=== PATIENT | male | born 1965 | race Two or more races ===

== ENCOUNTER 2023-01-18 11:17 | Emergency (ER) | payer OTHER ==
[~2023-01-18] VITALS: Ht 188 cm; Wt 129.4 kg
[2023-01-18 12:09] VITALS: BP 139/73
[2023-01-18] MEDS ORDERED: IBUPROFEN 600 MG TAB PO ONE (13:15)
[2023-01-18] MEDS ORDERED: CYCL-839 PO (13:18)
[2023-01-18] MEDS ORDERED: IBUP600T28 PO (13:18)
== END 2023-01-18 13:32 | disposition home or self-care (01) ==
LOC: ER 11:17
DX: S43.401A Unspecified sprain of right shoulder joint, initial encounter (principal); X58.XXXA Exposure to other specified factors, initial encounter; Y93.89 Activity, other specified; Y92.89 Other specified places as the place of occurrence of the external cause; Y99.8 Other external cause status
CPT/HCPCS: 73030

== ENCOUNTER 2025-02-09 21:32 | Inpatient (IN) | payer OTHER ==
[~2025-02-09] VITALS: Ht 188 cm; Wt 123.6 kg
[~2025-02-09 21:32] MED LIST: CYCL-839 PO; IBUP1TAB5 PO
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
--- NOTE | 2025-02-09 22:03 | ECG ---
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
[2025-02-09 22:21] LABS: Basophils # (auto) 0.1 10 ^3/uL (0-0.2); Basophils % (auto) 0.7 % (0.0-2.0); Eosinophils # (auto) 0.1 10 ^3/uL (0-0.8); Hematocrit 36.5 % (41.0-53.0); Hemoglobin 12.6 g/dL (13.5-17.5); Lymphocytes # (auto) 0.9 10 ^3/uL (0.4-5.4); Lymphocytes % (auto) 12.2 % (10.0-50.0); Mean Corpuscular Hemoglobin 30.4 pg (28.0-32.0); Mean Corpuscular Hgb Conc. 34.5 g/dL (32.0-36.0); Mean Corpuscular Volume 88.1 fL (80.0-100.0); Monocytes # (auto) 0.8 10 ^3/uL (0-1.3); Monocytes % (auto) 10.1 % (0.0-12.0); Neutrophils # (auto) 5.8 10 ^3/uL (1.6-8.6); Nucleated Red Blood Cells % 0.1 %; Platelet Count (auto) 199 10^3/uL (140-450); Red Blood Cells 4.14 10^6/uL (4.5-5.90); Red Cell Distribution Width 14.2 % (11.8-14.3); White Blood Cell 7.6 10^3/uL (4.4-10.8)
--- NOTE | 2025-02-09 22:35 | DVH ---
CT HEAD WITHOUT CONTRAST INDICATION: Confusion, headache COMPARISON: None TECHNIQUE: CT of the head without intravenous contrast. RADIATION DOSE: CTDIvol: mGy, DLP: mGy*cm FINDINGS: There is no evidence of intracranial hemorrhage, infarct, extra-axial collection, mass effect, midli ne shift, herniation or hydrocephalus. The ventricles, sulci and cisterns are normal. The berger-white differentiation is normal. Visualized paranasal sinuses and mastoid air cells are clear. Soft tissues and osseous structures are unremarkable. IMPRESSION: No intracranial abnormality identified.
--- NOTE | 2025-02-09 22:37 | DVH ---
CHEST RADIOGRAPH Indication: dizziness chest pain Technique: Frontal and lateral view of the chest was obtained Comparison: None FINDINGS: Lines and Tubes: None Lungs: No pulmonary infiltrates or pulmonary edema. Evidence of small round 5 mm calcified granuloma at the right lung base. Pleura: No effusion. No pneumothorax. Cardiomediastinal contours: Unremarkable Bones: Unremarkable IMPRESSION: No evidence of acute disease.
[2025-02-09 22:38] LABS: Alanine Aminotransferase 26 U/L (7-40); Alkaline Phosphatase 64 U/L (46-116); Anion Gap 11 (5-15); Aspartate Aminotransferase 20 U/L (13-40); BUN/Creatinine Ratio 5.8 (10.0-20.0); Bilirubin, Total 0.5 mg/dL (0.2-1.0); Carbon Dioxide 21 mmol/L (20-31); Chloride 99 mmol/L (98-107); Potassium 4.2 mmol/L (3.5-5.1); Total Protein 7.1 g/dL (5.7-8.2)
[2025-02-09 22:45] LABS: Albumin 4.8 g/dL (3.2-4.8); Blood Urea Nitrogen 6 mg/dL (9-23); Glucose 181 mg/dL (74-106); Sodium 131 mmol/L (136-145)
[2025-02-09 23:15] LABS: Urine Bacteria None Seen /hpf (None Seen)
[2025-02-09] MEDS ORDERED: ONDANSETRON HCL 4 MG/2 ML VIAL IV PRN (23:30)
[2025-02-09] MEDS ORDERED: HYDROcodone-ACET 5/325MG TAB PO PRN (23:30)
[2025-02-09] MEDS ORDERED: ACETAMINOPHEN 325 MG TAB PO PRN (23:30)
[2025-02-09] MEDS ORDERED: DOCUSATE SOD 100 MG CAP PO PRN (23:30)
[2025-02-09 23:39] LABS: Urine Blood Negative /uL (Negative); Urine Clarity Clear (Clear); Urine Color Colorless (Yellow); Urine Protein, UAD Negative (Negative); Urine Specific Gravity 1.004 (1.001-1.035); Urine Squamous Epithelial Cell None Seen /hpf (<5); Urine Urobilinogen Normal (Negative)
[2025-02-09 23:43] LABS: Amphetamine Screen, Urine Neg (NEGATIVE); Barbiturate Scree,Urine Neg (NEGATIVE); Benzodiazephine Screen, Urine Neg (NEGATIVE); Cannabinoid Screen, Urine Neg (NEGATIVE); Cocaine Screen, Urine Neg (NEGATIVE); Opiate Scree,Urine Neg (NEGATIVE); Phencyclidine Screen, Urine Neg (NEGATIVE)
[2025-02-09 23:44] LABS: Urine WBC < 1 /HPF (0-3)
[2025-02-10] VITALS (12 sets, daily range): BP systolic 110–154; BP diastolic 60–91; PULSE 64–87; RESP 11–20; TEMP 97.9–98.8; O2SAT 96–98
[2025-02-10] MEDS ORDERED: ONDANSETRON HCL 4 MG/2 ML VIAL IV PRN
[2025-02-10] MEDS ORDERED: MORPHINE SULFATE INJ 2 MG/ml SYRG IV PRN
[2025-02-10] MEDS ORDERED: ACETAMINOPHEN 325 MG TAB PO PRN
[2025-02-10] MEDS ORDERED: NITROGLYCERIN 0.4 MG SL TAB SL PRN
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
--- NOTE | 2025-02-10 00:18 | ECG ---
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
[2025-02-10] MEDS ORDERED: HEPARIN DRIP/D5W 100UNITS/ML 250 ML IV SCH (00:30)
[2025-02-10 01:09] LABS: Basophils # (auto) 0.1 10 ^3/uL (0-0.2); Eosinophils # (auto) 0.1 10 ^3/uL (0-0.8); Eosinophils % (auto) 1.1 % (0.0-7.0); Hematocrit 36.2 % (41.0-53.0); Hemoglobin 12.5 g/dL (13.5-17.5); Lymphocytes # (auto) 1.1 10 ^3/uL (0.4-5.4); Lymphocytes % (auto) 15.4 % (10.0-50.0); Mean Corpuscular Hemoglobin 30.6 pg (28.0-32.0); Mean Corpuscular Hgb Conc. 34.6 g/dL (32.0-36.0); Mean Corpuscular Volume 88.5 fL (80.0-100.0); Monocytes # (auto) 0.8 10 ^3/uL (0-1.3); Neutrophils # (auto) 5.2 10 ^3/uL (1.6-8.6); Neutrophils % (auto) 71.5 % (37.0-80.0); Platelet Count (auto) 212 10^3/uL (140-450); Red Cell Distribution Width 13.9 % (11.8-14.3); White Blood Cell 7.3 10^3/uL (4.4-10.8)
[2025-02-10] MEDS: ASPirin 81 mg TAB PO ONE (01:16)
[2025-02-10] MEDS: amLODIPine BESYLATE 5 MG TAB PO ONE (01:17)
[2025-02-10 01:24] LABS: Partial Thromboplastin Time 25.9 SEC (24.5-34.5); Prothrombin Time 10.6 sec (9.3-11.8)
[2025-02-10] MEDS: SODIUM CHLORIDE 0.9% 1,000 ML IV SCH (01:26)
[2025-02-10] MEDS: HYDROcodone-ACET 5/325MG TAB PO PRN (01:35)
[2025-02-10] MEDS: HEPARIN SODIUM (PORCINE) 5000 UNITS/ML 1ML VIAL IV ONE (02:13)
[2025-02-10] MEDS: HEPARIN DRIP/D5W 100UNITS/ML 250 ML IV SCH ×2 (02:14→09:54)
[2025-02-10 03:49] LABS: Rapid Influenza A Negative (Negative); Rapid Influenza B Negative (Negative)
[2025-02-10 03:50] LABS: COVID19 ANTIGEN SOFIA FIA NEGATIVE (NEGATIVE)
[2025-02-10 03:53] LABS: Basophils # (auto) 0 10 ^3/uL (0-0.2); Basophils % (auto) 0.5 % (0.0-2.0); Eosinophils # (auto) 0.1 10 ^3/uL (0-0.8); Eosinophils % (auto) 1.5 % (0.0-7.0); Hemoglobin 12.5 g/dL (13.5-17.5); Lymphocytes # (auto) 1.2 10 ^3/uL (0.4-5.4); Lymphocytes % (auto) 19.2 % (10.0-50.0); Mean Corpuscular Hemoglobin 30.7 pg (28.0-32.0); Mean Corpuscular Hgb Conc. 34.7 g/dL (32.0-36.0); Mean Corpuscular Volume 88.3 fL (80.0-100.0); Monocytes # (auto) 0.7 10 ^3/uL (0-1.3); Monocytes % (auto) 10.9 % (0.0-12.0); Neutrophils # (auto) 4.4 10 ^3/uL (1.6-8.6); Neutrophils % (auto) 67.9 % (37.0-80.0); Nucleated Red Blood Cells % 0.1 %; Platelet Count (auto) 198 10^3/uL (140-450); Red Blood Cells 4.08 10^6/uL (4.5-5.90); Red Cell Distribution Width 14.1 % (11.8-14.3); White Blood Cell 6.5 10^3/uL (4.4-10.8)
[2025-02-10 04:05] LABS: Alanine Aminotransferase 18 U/L (7-40); Albumin 4.6 g/dL (3.2-4.8); Alkaline Phosphatase 57 U/L (46-116); Anion Gap 8 (5-15); Aspartate Aminotransferase 21 U/L (13-40); Bilirubin, Total 0.5 mg/dL (0.2-1.0); Calcium 9.1 mg/dL (8.7-10.4); Carbon Dioxide 23 mmol/L (20-31); Chloride 99 mmol/L (98-107); Potassium 3.8 mmol/L (3.5-5.1); Total Protein 6.9 g/dL (5.7-8.2)
[2025-02-10 04:06] LABS: BUN/Creatinine Ratio 6.2 (10.0-20.0); Blood Urea Nitrogen < 5 mg/dL (9-23); Glucose 121 mg/dL (74-106); Sodium 130 mmol/L (136-145)
[2025-02-10] MEDS: hydrALAZINE HCL 20 MG/ML VL IV PRN (05:32)
[2025-02-10] MEDS: hydrALAZINE HCL 20 MG/ML VL IV ONE (06:00)
[2025-02-10] MEDS: PANTOPRAZOLE 40 MG/10 ML VIAL INJ IV ONE (06:47)
[2025-02-10] MEDS: SODIUM CHLOR 0.9% PF (SALINE LOCK) 10ML VIAL/SYR IV SCH (06:47)
[2025-02-10] MEDS: FUROSEMIDE 20 MG/2 ML VIAL IV ONE (06:48)
[2025-02-10 09:16] LABS: INR 1.01 (0.9-1.15); Partial Thromboplastin Time 40.2 SEC (24.5-34.5); Prothrombin Time 10.7 sec (9.3-11.8)
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
[2025-02-10] MEDS: ASPirin 81 mg TAB PO SCH (09:52)
[2025-02-10] MEDS: amLODIPine BESYLATE 5 MG TAB PO SCH (09:52)
--- NOTE | 2025-02-10 09:52 | CONS ---
Pharmacy Clinical Information: HEPARIN DRIP PER RX PROTOCOL aPTT = 40.2 OLD RATE: 1000 u/HR (10 ML/HR) NEW RATE: INCREASE 200 u/HR TO 1200 UNITS/HR (12 ML/HR) NEXT aPTT 02/10 @1600 COMMUNICATED WITH DUDLEY POOLE PHARMACIST February 10, 2025 09:52
--- NOTE | 2025-02-10 09:56 | DVH ---
PROCEDURE: MRI OF THE BRAIN WITHOUT CONTRAST. CLINICAL INDICATION: RULE OUT STROKE TECHNIQUE: Multiplanar, multi sequence MRI of the brain was performed without intravenous contrast. COMPARISON: CT scan of the head performed earlier same date FINDINGS: The signal abnormality of the brain parenchyma is within normal limits. There are no areas of restric lucrecia diffusion to suggest acute infarct. No evidence of space occupying mass lesion, extra-axial colle ctions or hemorrhage is noted. The ventricles, sulci and basal cisterns are intact. There is no signa l abnormality in the posterior fossa. The mastoid air cells are well pneumatized. Mucosal thickening in the left maxillary sinus. The orbi ts and nasopharynx are intact. The osseous structures are intact. The vessels of the skull base demonstrate signal void consistent with patency. IMPRESSION: 1. No acute intracranial abnormality.
[2025-02-10] MEDS: BENAZEPRIL HCL 10 MG TAB PO SCH (10:00)
[2025-02-10] MEDS ORDERED: ENOXAPARIN SOD 40 MG/0.4 ML SYRINGE SC SCH (10:00)
--- NOTE | 2025-02-10 10:05 | DVH ---
Carotid Duplex Date: 02/10/2025 09:21 AM Clinical History: Syncope, rule out stroke Comparison: None Technique: Duplex Doppler evaluation of the extracranial carotid and vertebral arteries including col or Doppler and spectral/pulsed waveform analysis was performed. Findings: RIGHT SIDE: The peak systolic velocities are 69 cm/s in the distal CCA and 94 cm/s in the proximal ICA.The ICA/CC A ratio is less than 2. The external carotid artery is patent with peak systolic velocity of 110 cm/s proximally. There is appropriate antegrade flow in the right vertebral artery. LEFT SIDE: The peak systolic velocities are 83 cm/s in the distal CCA and 115 cm/s in the proximal ICA.. The ICA /CCA ratio is less than 2. The external carotid artery is patent with peak systolic velocity of 112 cm/s proximally. There is appropriate antegrade flow in the left vertebral artery. IMPRESSION: No hemodynamically significant stenosis noted in the right carotid system. No hemodynamically significant stenosis noted in the left carotid system. Reference: Radiology 2003; 229:[id number]
[2025-02-10 10:24] LABS: Magnesium 1.7 mg/dL (1.6-2.6)
[2025-02-10] MEDS: ANGIOMAX 250 MG VIAL IV ONE (11:52)
[2025-02-10] MEDS: MIDAZOLAM HCL 2MG/2ML 2ml VIAL (1mg/ml) ONE (11:53)
[2025-02-10] MEDS: fentaNYL CITRATE 100 MCG/2 ML VL ONE (11:53)
[2025-02-10] MEDS: SODIUM CHL 0.9% 50 ML ONE (11:53)
[2025-02-10] MEDS: HEPARIN SODIUM (PORCINE) 5000 UNITS/ML 1ML VIAL ONE (11:53)
[2025-02-10] MEDS: LIDOCAINE 2%HCL (LOCAL ANESTH.) INJ 20ML MDV ONE (11:53)
[2025-02-10] MEDS: VERAPAMIL 2.5MG/ML INJ 2ML VIAL IV ONE (11:53)
[2025-02-10] MEDS: IODIXANOL 320MG/ML 100ML BTL IV ONE (11:54)
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
--- NOTE | 2025-02-10 13:47 | DVHOP2 ---
Operative Report Operative Report CARDIAC [facility] LVN PROCEDURE REPORT [place], [place] Date of Service: 02/10/25 Reordering Clerk: Salome Levine MD PROCEDURES PERFORMED: Coronary angiogram, left heart catheterization, conscious sedation administration and supervision, less than 15 minutes; fluoroscopy use and interpretation. PTCA 1 vessel, PCI 1 vessel, acute TX intervention with rising troponin urgent case PREOPERATIVE DIAGNOSES: NSTEMI POSTOP DIAGNOSIS: NSTEMI DESCRIPTION OF PROCEDURE: The patient or appropriate family signed informed consent understanding the risks, benefits and alternatives of the procedure, they wished to proceed. The patient was brought to the cardiac labor economics professor [place]. The patient was prepped in a sterile fashion. Sedation was used per cardiac cath protocol. the patient had zero radial pulse on R side prob 2/2 to previous intervention at OSH. I administered 2 mL of 2% lidocaine to the right wrist. I was unable to cannulate the vessel that was very diminutive on US. therefore the LRA had a very good radial pulse and we prepped that. With 1 cc of lidocaine, I accessed the L RA and placed 6F sheath. Next, an intra-arterial spasmolytic was administered. Next, a - 6French JR4 JL 4, and XB 3 and were used for coronary angiogram and LVEDP measurement and pressure pullback. At the completion of procedure, all guides and wires were removed, and there were no immediate complications. FINDINGS: RCA: Moderate vessel off the right sinus of Valsalva, there is no severe flow limiting stenosis. 20% prox stenosis, sluggish flow suggestive of microvascular disease LEFT MAIN: Moderate size left main, it bifurcates into LAD and circumflex. no severe stenosis . CIRCUMFLEX: Moderate caliber vessel coming off the left main with no flow limiting stenosis. LAD: LAD is a moderate caliber vessel coming of the left main. prox LAD has a long tubular 40% hazy stenosis, mid LAD has a patent stent, after the stent the distal LAD had a discrete 80% stenosis at a large Diag bifurcation . INTERVENTION: We decided to proceed with coronary intervention. I started with a 6F XB3____ Guide to intubate the LM __. Angiomax bolus and gtt was started. Following this, I decided to wire using an .014 BMW across the culprit lesion with ease. At this time, we performed balloon angioplasty with a _2.5 mm balloon by s__ balloon up to __10__ ATMS over __15__ seconds with 1_ number of inflations. Following this, I decided to place a stent using a 3.0 x 8 mm mm onyx____ stent inflated up to __16 __ ATMS over 15 seconds with two separate inflations. Following this, the stent balloon removed and angio performed showing 0% residual stenosis. stent was placed about 2 cm distal to previous older stent without overlap as that was normal lad vessel and to avoid too much metal in his LAD. KARLENE pre/post: 3./3 CONCLUSIONS: 1. sp pci to 80% mid to distal LAD stenosis PLAN: Aggressive risk factor modification and medical management for the patient. DAPT x 1 year uninterrupted SALOME LEVINE MD February 10, 2025 13:47
[2025-02-10] MEDS: TICAGRELOR 90 MG TAB ONE (13:56)
[2025-02-10] MEDS: ASPirin 81 mg TAB ONE (13:56)
--- NOTE | 2025-02-10 16:00 | DVHSR ---
APPROVED REPORT EXAM: Two-dimensional and M-mode echocardiogram with Doppler and color Doppler. Blood Pressure: 165/89 mmHg INDICATION Chest Pain RISK FACTORS Height: 72, Weight: 268 DIMENSIONS LVDd4.4 (3.8-5.7cm)LA (2D)4.4 (1.9-4.0cm)Aortic Root4.0 (2.0-3.7cm) LVDs3.3 (2.5-4.0cm)LA (MM) (1.9-4.0cm)Aortic Cusp Exc2.0 (1.5-2.0cm) EF (%) 52.0 (55-70%)Rt. Atrium (1.9-4.0cm)Asc. Aorta cm IVSd1.3 (0.7-1.1cm)RV (D) (1.8-2.4cm) PWd1.3 (0.7-1.1cm) Mitral Valve MitralMitral Stenosis E wave0.63m/sMV Mean GR.mmHg A wave0.80m/sMV Peak GR.mmHg E/A ratio0.82D MVAcm2 DECEL [id number] 1/2 Xpib59oh IVRTmsDop MVA3.66cm2 Aortic Valve Aortic ValveAortic Stenosis V11.29m/Michelle Mean GR.3mmHg V21.18m/Michelle Peak GR.6mmHg LVOT Diameter2.2 (1.8-2.4cm)Doppler AVA4.15cm2 Pulmonic Valve V20.91m/s Other Information Technically limited study due to body habitus and patient position. Conclusion lvef 60% by visual estimate normal rv function normal atria no severe valve abnormalities noted
[2025-02-10] MEDS ORDERED: ATORVASTATIN 20 MG TAB PO SCH (22:00)
[2025-02-10] MEDS: ATORVASTATIN 20 MG TAB PO SCH (22:08)
[2025-02-10] MEDS: CLOPIDOGREL BISULFATE 75 MG TAB PO ONE (22:09)
[2025-02-10] MEDS: CARVEDILOL 3.125 MG TAB PO SCH (22:10)
[2025-02-11] VITALS (8 sets, daily range): BP systolic 122–164; BP diastolic 68–90; PULSE 64–86; RESP 17–20; TEMP 97.4–98.7; O2SAT 96–99
[2025-02-11 07:25] LABS: Basophils # (auto) 0 10 ^3/uL (0-0.2); Basophils % (auto) 0.5 % (0.0-2.0); Eosinophils # (auto) 0.1 10 ^3/uL (0-0.8); Eosinophils % (auto) 1.7 % (0.0-7.0); Hematocrit 39.9 % (41.0-53.0); Hemoglobin 13.7 g/dL (13.5-17.5); Lymphocytes # (auto) 0.7 10 ^3/uL (0.4-5.4); Lymphocytes % (auto) 10.6 % (10.0-50.0); Mean Corpuscular Hemoglobin 30.7 pg (28.0-32.0); Mean Corpuscular Hgb Conc. 34.4 g/dL (32.0-36.0); Mean Corpuscular Volume 89.5 fL (80.0-100.0); Monocytes # (auto) 0.7 10 ^3/uL (0-1.3); Monocytes % (auto) 10.6 % (0.0-12.0); Neutrophils # (auto) 5.2 10 ^3/uL (1.6-8.6); Neutrophils % (auto) 76.6 % (37.0-80.0); Nucleated Red Blood Cells % 0.1 %; Platelet Count (auto) 220 10^3/uL (140-450); Red Blood Cells 4.46 10^6/uL (4.5-5.90); Red Cell Distribution Width 14.1 % (11.8-14.3); White Blood Cell 6.8 10^3/uL (4.4-10.8)
[2025-02-11 07:27] LABS: Alanine Aminotransferase 21 U/L (7-40); Albumin 4.7 g/dL (3.2-4.8); Alkaline Phosphatase 64 U/L (46-116); Anion Gap 8 (5-15); BUN/Creatinine Ratio 9.7 (10.0-20.0); Blood Urea Nitrogen 10 mg/dL (9-23); Calcium 10.2 mg/dL (8.7-10.4); Carbon Dioxide 24 mmol/L (20-31); Chloride 101 mmol/L (98-107); Potassium 4.4 mmol/L (3.5-5.1); Total Protein 7.4 g/dL (5.7-8.2)
[2025-02-11 07:28] LABS: Aspartate Aminotransferase 18 U/L (13-40); Bilirubin, Total 0.6 mg/dL (0.2-1.0)
[2025-02-11 07:33] LABS: Glucose 140 mg/dL (74-106); Sodium 133 mmol/L (136-145)
[2025-02-11] MEDS: CLOPIDOGREL BISULFATE 75 MG TAB PO SCH (09:19)
[2025-02-11] MEDS: APIXABAN 5 MG TAB PO SCH (09:19)
[2025-02-11] MEDS: PANTOPRAZOLE 40 MG/10 ML VIAL INJ IV SCH (09:22)
[2025-02-11] MEDS ORDERED: CLOPIDOGREL BISULFATE 75 MG TAB PO SCH (10:00)
--- NOTE | 2025-02-11 10:35 | DVHPN2 ---
Consult Progress Note Date Seen: February 11, 2025 Subjective Review of Systems: CVS:Normal, RESPIRATORY:Normal, NEURO:Normal Objective vital signs Vital Sign Date Time Temp Pulse Resp B/P (MAP) Pulse Ox O2 Delivery O2 Flow Rate FiO2 02/11/25 09:21 155/75 02/11/25 09:20 85 02/11/25 09:10 98.7 17 99 98.7 02/11/25 08:00 Room Air* 0 21 Total Intake and Output 02/10/25 02/10/25 02/11/25 15:00 23:00 07:00 Output Total 1000 ml Balance -1000 ml medications Current Medications Medications Dose Ordered Sig/Philip Route Start Time Stop Time Status Last Admin Dose Admin Sodium Chloride 10 ml Q8HR IV 02/10/25 06:00 02/11/25 06:48 10 ML Acetaminophen/ Hydrocodone Bitart 1 tab Q4HP PRN PO 02/10/25 00:00 02/11/25 09:21 1 TAB Ondansetron HCl 4 mg Q4HP PRN IV 02/10/25 00:00 Docusate Sodium 100 mg BIDPRN PRN PO 02/10/25 00:00 Acetaminophen 650 mg Q6HP PRN PO 02/10/25 00:00 Nitroglycerin 0.4 mg Q5MINP PRN SL 02/10/25 00:00 Morphine Sulfate 2 mg Q30M PRN IV 02/10/25 00:00 Pantoprazole Sodium 40 mg DAILY IV 02/11/25 10:00 02/11/25 09:22 40 MG Atorvastatin Calcium 40 mg HS PO 02/10/25 22:00 02/10/25 22:08 40 MG Hydralazine HCl 10 mg Q6HP PRN IV 02/10/25 08:30 Carvedilol 6.25 mg Q12HR PO 02/10/25 22:00 02/11/25 09:20 6.25 MG Benazepril HCl 20 mg DAILY PO 02/10/25 10:00 02/11/25 09:21 20 MG Clopidogrel Bisulfate 75 mg DAILY PO 02/11/25 10:00 02/11/25 09:19 75 MG Apixaban 5 mg BID PO 02/11/25 10:00 02/11/25 09:19 5 MG Examination: LUNGS:Normal, CVS:Normal, NEURO:Normal laboratory and microbiology Laboratory Tests 02/11/25 06:15 Test 02/11/25 06:15 Range/Units Serum Glucose 140 H 74-106 mg/dL Problem List/Assessment/Plan Problem List/Assessment/Plan Non ST-elevation myocardial infarction Acute coronary syndrome with progressive coronary artery disease s/p PCI x 1DES to distal LAD Coronary artery disease status post PCI including one ZAHRAA (on Plavix) Paroxysmal atrial fibrillation, stage III, currently NSR (on Eliquis) Hypertensive urgency Krq-edkxnem-rqqucpgyy diabetes mellitus Hx alcohol dependence Obesity Plan/Recommendation (Dr. Batista) Status post cardiac catheterization and coronary angiogram with successful PCI to 80% mid to distal LAD stenosis x 1 ZAHRAA. Transthoracic echocardiogram revealed LVEF 60%. Continue Plavix and Eliquis therapy, statin, and beta- preet. Strongly advised on risk factor modifications including Mediterranean diet, exercise, weight loss, medical compliance and regular follow-ups with primary sales hunter with whom he has an scheduled appointment on 02/13/2025. There is no further cardiac work-up indicated at this time. Kindly call if in need to re-consult. Thank you for allowing us to participate in this patient's care. This medical document was created using an electronic medical record system with voice recognition software and computerized dictation system. Although this document has been carefully reviewed, there might still be some phonetic and typographical errors. Occasional wrong-word or ``sound-alike substitutions may have occurred due to the inherent limitations of voice recognition software. These areas are purely typographical due to imperfections of the software programs and do not reflect any compromise in the patient's medical care. Please read the chart carefully and recognize, using context, where these substitutions have occurred. Plan discussed with: Patient, Other Date of Service: February 11, 2025 Billing Provider: ASUNCION JAMES Cardiology Common Codes: [id number] [facility] ASUNCION JAMES February 11, 2025 10:35
[2025-02-11] MEDS ORDERED: APIX5TAB PO (12:05)
[2025-02-11] MEDS ORDERED: CARV-214 PO (12:05)
[2025-02-11] MEDS ORDERED: ATOR20TA50 PO (12:05)
[2025-02-11] MEDS ORDERED: NITR0.4S29 SL (12:05)
[2025-02-11] MEDS ORDERED: CLOP75TA70 PO (12:05)
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
[2025-02-12] VITALS (8 sets, daily range): BP systolic 126–154; BP diastolic 59–86; PULSE 63–76; RESP 18–19; TEMP 97.4–98; O2SAT 95–100
[2025-02-12] MEDS: LORazepam 0.5 MG TAB PO ONE (00:19)
--- NOTE | 2025-02-12 11:12 | DVHPNRES ---
Progress Note Date Seen: February 12, 2025 Resident Creating Document: MARI MORALES RESIDENT Has the PT tested + for MRSA If YES, has PT been informed?: No Medical Necessity Reason Pt with a Central, PICC or Fol: No Subjective Review of Systems Patient seen and examined at the bedside. Status post coronary angiogram. Pending discharge due to patient is seeing a do not want to go to he is placed because he is not feeling safe, consulted social welfare clerk for home safety eval and consulted tele psychiatry for evaluation of saritha, schizophrenia Objective vital signs Vital Sign Date Time Temp Pulse Resp B/P (MAP) Pulse Ox O2 Delivery O2 Flow Rate FiO2 02/12/25 10:22 126/75 02/12/25 08:40 97.6 65 19 100 97.6 02/11/25 20:00 Room Air* 0 21 medications Current Medications Medications Dose Ordered Sig/Philip Route Start Time Stop Time Status Last Admin Dose Admin Sodium Chloride 10 ml Q8HR IV 02/10/25 06:00 02/12/25 06:05 10 ML Acetaminophen/ Hydrocodone Bitart 1 tab Q4HP PRN PO 02/10/25 00:00 02/12/25 04:26 1 TAB Ondansetron HCl 4 mg Q4HP PRN IV 02/10/25 00:00 Docusate Sodium 100 mg BIDPRN PRN PO 02/10/25 00:00 Acetaminophen 650 mg Q6HP PRN PO 02/10/25 00:00 Nitroglycerin 0.4 mg Q5MINP PRN SL 02/10/25 00:00 Morphine Sulfate 2 mg Q30M PRN IV 02/10/25 00:00 Pantoprazole Sodium 40 mg DAILY IV 02/11/25 10:00 02/12/25 10:21 40 MG Atorvastatin Calcium 40 mg HS PO 02/10/25 22:00 02/11/25 21:21 40 MG Hydralazine HCl 10 mg Q6HP PRN IV 02/10/25 08:30 Carvedilol 6.25 mg Q12HR PO 02/10/25 22:00 02/11/25 21:21 6.25 MG Benazepril HCl 20 mg DAILY PO 02/10/25 10:00 02/12/25 10:22 20 MG Clopidogrel Bisulfate 75 mg DAILY PO 02/11/25 10:00 02/12/25 10:22 75 MG Apixaban 5 mg BID PO 02/11/25 10:00 02/12/25 10:22 5 MG Examination Pt is lying on bed General Appearance: Alert, Oriented X3, Cooperative, Not in acute distress HEENT: Atraumatic, Mucous membranes moist/pink Respiratory: Clear to auscultation, Normal air movement, No added sounds Cardiovascular: Regular rate, Normal S1, Normal S2, No murmurs Abdominal: Active bowel sounds, Soft, no distention, no tenderness Extremities: No edema, Normal pulses, No tenderness/swelling Skin: No Significant rash, except past surgical scars Neuro: Normal speech, sensorimotor deficits none Psych/Mental Status: Mental status NL, Mood NL Nurse was there as sharperone during examination laboratory and microbiology Laboratory Tests 02/11/25 06:15 Test 02/11/25 06:15 Range/Units Serum Glucose 140 H 74-106 mg/dL Labs and/or images reviewed: Labs reviewed by me, Image(s) reviewed by me Problem List/Assessment/Plan Problem List/Assessment/Plan Acute coronary syndrome with progressive coronary artery disease s/p PCI x 1DES(New) to distal LAD NSTEMI CAD hx of s/p PCI HTN Urgency Paroxysmal atrial fibrillation, stage III, currently NSR (on Eliquis) Dyslipidemia Type 2 DM with HbA1c 6.2 Obesity class 1 Mild asymptomatic hyponatremia Plan: - status post cardiac catheterization and coronary angiogram with successful PCI to 80% mid to distal LAD stenosis x 1 ZAHRAA. - Transthoracic echocardiogram revealed LVEF 60%. Continue Plavix and Eliquis therapy, statin, and beta-preet. - Strongly advised on risk factor modifications - regular follow-ups with primary manager security with whom he has an scheduled appointment on 02/13/2025. - Accu-Cheks and ISS - strict blood pressure monitoring - tele psych life skills consultant - social welfare clerk for home safety eval Protonix Cardiac diet Goals of care discussed with the patient for more than 29 minutes: Full code status Case discussed with Dr. Rush, patient and nurse Plan discussed with: Patient My Orders My Orders Orders - MARI MORALES RESIDENT Procedure Category Date Status Time Discharge DISCHARGE 02/11/25 Transmitted 14:02 * Audio Visual Director CONS 02/11/25 Transmitted Consult *Tele Psych Consult CONS 02/12/25 Transmitted 11:03 Date of Service: February 12, 2025 Billing Provider: KAT ALEGRIA MD Common Visit Codes: [id number] INP/OBS CARE(HIGH) MARI MORALES RESIDENT February 12, 2025 11:12 KAT ALEGRIA MD February 16, 2025 03:08
--- NOTE | 2025-02-12 13:59 | DVHPN2 ---
Progress Note Date Seen: February 12, 2025 Has the PT tested + for MRSA If YES, has PT been informed?: No Medical Necessity Reason Pt with a Central, PICC or Fol: No Subjective Patient reports: Feels better Objective vital signs Vital Sign Date Time Temp Pulse Resp B/P (MAP) Pulse Ox O2 Delivery O2 Flow Rate FiO2 02/12/25 12:10 65 126/75 02/12/25 08:40 97.6 19 100 97.6 02/12/25 08:00 Room Air* 0 21 medications Current Medications Medications Dose Ordered Sig/Philip Route Start Time Stop Time Status Last Admin Dose Admin Sodium Chloride 10 ml Q8HR IV 02/10/25 06:00 02/12/25 06:05 10 ML Acetaminophen/ Hydrocodone Bitart 1 tab Q4HP PRN PO 02/10/25 00:00 02/12/25 12:10 1 TAB Ondansetron HCl 4 mg Q4HP PRN IV 02/10/25 00:00 Docusate Sodium 100 mg BIDPRN PRN PO 02/10/25 00:00 Acetaminophen 650 mg Q6HP PRN PO 02/10/25 00:00 Nitroglycerin 0.4 mg Q5MINP PRN SL 02/10/25 00:00 Morphine Sulfate 2 mg Q30M PRN IV 02/10/25 00:00 Pantoprazole Sodium 40 mg DAILY IV 02/11/25 10:00 02/12/25 10:21 40 MG Atorvastatin Calcium 40 mg HS PO 02/10/25 22:00 02/11/25 21:21 40 MG Hydralazine HCl 10 mg Q6HP PRN IV 02/10/25 08:30 Carvedilol 6.25 mg Q12HR PO 02/10/25 22:00 02/12/25 12:10 6.25 MG Benazepril HCl 20 mg DAILY PO 02/10/25 10:00 02/12/25 10:22 20 MG Clopidogrel Bisulfate 75 mg DAILY PO 02/11/25 10:00 02/12/25 10:22 75 MG Apixaban 5 mg BID PO 02/11/25 10:00 02/12/25 10:22 5 MG Examination: GENERAL:Abnormal, HEENT:Abnormal, LUNGS:Abnormal, CVS:Abnormal, ABDOMEN:Abnormal laboratory and microbiology Laboratory Tests 5/13/25 06:15 Test 02/11/25 06:15 Range/Units Serum Glucose 140 H 74-106 mg/dL Problem List/Assessment/Plan Problem List/Assessment/Plan cad ?drug abuse systolic hf ckd afib hx cont plavix resume doac when feasible avoid triple therapy cv cleared for dc home Plan discussed with: Patient Date of Service: February 12, 2025 Billing Provider: SALOME LEVINE MD Common Visit Codes: NOT BILLABLE SALOME LEVINE MD February 12, 2025 13:59
[2025-02-12] MEDS: DOCUSATE SOD 100 MG CAP PO PRN (21:17)
[2025-02-12] MEDS: traZODone HCL 50 MG TAB PO SCH (21:17)
[2025-02-13] VITALS (7 sets, daily range): BP systolic 116–165; BP diastolic 62–93; PULSE 61–79; RESP 16–20; TEMP 97.6–98.6; O2SAT 94–99
--- NOTE | 2025-02-13 11:00 | DVHPNRES ---
Progress Note Date Seen: February 13, 2025 Resident Creating Document: MARI MORALES RESIDENT Has the PT tested + for MRSA If YES, has PT been informed?: No Medical Necessity Reason Pt with a Central, PICC or Fol: No Subjective Review of Systems Patient seen and examined at the bedside. Status post coronary angiogram. Pending discharge due to patient is seeing a do not want to go to he is placed because he is not feeling safe, consulted social service coordinator for home safety eval and consulted tele psychiatry for evaluation of saritha, schizophrenia Objective vital signs Vital Sign Date Time Temp Pulse Resp B/P (MAP) Pulse Ox O2 Delivery O2 Flow Rate FiO2 02/13/25 09:24 129/75 02/13/25 09:23 61 02/13/25 09:00 97.6 18 94 97.6 02/12/25 19:43 Room Air* 0 21 Total Intake and Output 02/12/25 02/12/25 02/13/25 15:00 23:00 07:00 Intake Total 2591 ml 1500 ml Output Total 2250 ml Balance 2591 ml -750 ml medications Current Medications Medications Dose Ordered Sig/Philip Route Start Time Stop Time Status Last Admin Dose Admin Sodium Chloride 10 ml Q8HR IV 02/10/25 06:00 02/13/25 05:07 10 ML Acetaminophen/ Hydrocodone Bitart 1 tab Q4HP PRN PO 02/10/25 00:00 02/13/25 10:27 1 TAB Ondansetron HCl 4 mg Q4HP PRN IV 02/10/25 00:00 Docusate Sodium 100 mg BIDPRN PRN PO 02/10/25 00:00 02/12/25 21:17 100 MG Acetaminophen 650 mg Q6HP PRN PO 02/10/25 00:00 Nitroglycerin 0.4 mg Q5MINP PRN SL 02/10/25 00:00 Morphine Sulfate 2 mg Q30M PRN IV 02/10/25 00:00 Pantoprazole Sodium 40 mg DAILY IV 02/11/25 10:00 02/13/25 09:23 40 MG Atorvastatin Calcium 40 mg HS PO 02/10/25 22:00 02/12/25 21:17 40 MG Hydralazine HCl 10 mg Q6HP PRN IV 02/10/25 08:30 Carvedilol 6.25 mg Q12HR PO 02/10/25 22:00 02/13/25 09:23 6.25 MG Benazepril HCl 20 mg DAILY PO 02/10/25 10:00 02/13/25 09:24 20 MG Clopidogrel Bisulfate 75 mg DAILY PO 02/11/25 10:00 02/13/25 09:21 75 MG Apixaban 5 mg BID PO 02/11/25 10:00 02/13/25 09:21 5 MG Trazodone HCl 50 mg HS PO 02/12/25 22:00 02/12/25 21:17 50 MG Examination Pt is lying on bed General Appearance: Alert, Oriented X3, Cooperative, Not in acute distress HEENT: Atraumatic, Mucous membranes moist/pink Respiratory: Clear to auscultation, Normal air movement, No added sounds Cardiovascular: Regular rate, Normal S1, Normal S2, No murmurs Abdominal: Active bowel sounds, Soft, no distention, no tenderness Extremities: No edema, Normal pulses, No tenderness/swelling Skin: No Significant rash, except past surgical scars Neuro: Normal speech, sensorimotor deficits none Psych/Mental Status: Mental status NL, Mood NL Nurse was there as sharperone during examination laboratory and microbiology Laboratory Tests 02/11/25 06:15 Test 02/11/25 06:15 Range/Units Serum Glucose 140 H 74-106 mg/dL Labs and/or images reviewed: Labs reviewed by me, Image(s) reviewed by me Problem List/Assessment/Plan Problem List/Assessment/Plan Acute coronary syndrome with progressive coronary artery disease s/p PCI x 1DES(New) to distal LAD NSTEMI CAD hx of s/p PCI HTN Urgency Paroxysmal atrial fibrillation, stage III, currently NSR (on Eliquis) Dyslipidemia Type 2 DM with HbA1c 6.2 Obesity class 1 Mild asymptomatic hyponatremia Plan: - status post cardiac catheterization and coronary angiogram with successful PCI to 80% mid to distal LAD stenosis x 1 ZAHRAA. - Transthoracic echocardiogram revealed LVEF 60%. Continue Plavix and Eliquis therapy, statin, and beta-preet. - Strongly advised on risk factor modifications - regular follow-ups with primary umbrella tipper hand with whom he has an scheduled appointment on 02/13/2025. - Accu-Cheks and ISS - strict blood pressure monitoring - tele psych telesales consultant - social service coordinator for home safety eval Protonix Cardiac diet Goals of care discussed with the patient for more than 29 minutes: Full code status Case discussed with Dr. Rush, patient and nurse. Pending psych consultation. Plan discussed with: Patient My Orders My Orders Orders - MARI MORALES Procedure Category Date Status Time *Tele Psych Consult CONS 02/12/25 Transmitted 11:03 Date of Service: February 13, 2025 Billing Provider: KAT ALEGRIA MD Common Visit Codes: [id number] INP/OBS CARE(HIGH) MARI MORALES February 13, 2025 11:00 KAT ALEGRIA MD February 16, 2025 03:14
[2025-02-13] MEDS ORDERED: APIX5TAB PO (17:27)
[2025-02-13] MEDS ORDERED: CLOP75TA70 PO (17:27)
[2025-02-13] MEDS ORDERED: ATOR-507 PO (17:27)
[2025-02-13] MEDS ORDERED: CARV6.2551 PO (17:27)
[2025-02-13] MEDS ORDERED: NITR0.4S29 SL (17:27)
[2025-02-14] VITALS (9 sets, daily range): BP systolic 111–177; BP diastolic 63–112; PULSE 64–81; RESP 15–20; TEMP 97.6–98.2; O2SAT 95–100
[2025-02-14] MEDS: hydrALAZINE HCL 20 MG/ML VL IV PRN (03:54)
--- NOTE | 2025-02-14 15:40 | DVHPNRES ---
Progress Note Date Seen: February 14, 2025 Resident Creating Document: MARI MORALES RESIDENT Has the PT tested + for MRSA If YES, has PT been informed?: No Medical Necessity Reason Pt with a Central, PICC or Fol: No Subjective Review of Systems Patient seen and examined at the bedside. Patient reported improvement in her symptoms since admission, reported no new complaints. DC planning to home health, social services assistant on board, possible DC in next 24 hours. Patient reports: Feels better Objective vital signs Vital Sign Date Time Temp Pulse Resp B/P (MAP) Pulse Ox O2 Delivery O2 Flow Rate FiO2 02/14/25 13:00 97.9 74 15 127/63 (84) 97 97.9 02/14/25 08:00 Room Air* 0 21 Total Intake and Output 02/13/25 02/13/25 02/14/25 15:00 23:00 07:00 Intake Total 1000 ml Balance 1000 ml medications Current Medications Medications Dose Ordered Sig/Philip Route Start Time Stop Time Status Last Admin Dose Admin Sodium Chloride 10 ml Q8HR IV 02/10/25 06:00 02/14/25 14:00 10 ML Acetaminophen/ Hydrocodone Bitart 1 tab Q4HP PRN PO 02/10/25 00:00 02/14/25 04:00 1 TAB Ondansetron HCl 4 mg Q4HP PRN IV 02/10/25 00:00 Docusate Sodium 100 mg BIDPRN PRN PO 02/10/25 00:00 02/12/25 21:17 100 MG Acetaminophen 650 mg Q6HP PRN PO 02/10/25 00:00 Nitroglycerin 0.4 mg Q5MINP PRN SL 02/10/25 00:00 Morphine Sulfate 2 mg Q30M PRN IV 02/10/25 00:00 Pantoprazole Sodium 40 mg DAILY IV 02/11/25 10:00 02/14/25 10:15 40 MG Atorvastatin Calcium 40 mg HS PO 02/10/25 22:00 02/13/25 21:51 40 MG Hydralazine HCl 10 mg Q6HP PRN IV 02/10/25 08:30 02/14/25 03:54 10 MG Carvedilol 6.25 mg Q12HR PO 02/10/25 22:00 02/14/25 10:16 6.25 MG Benazepril HCl 20 mg DAILY PO 02/10/25 10:00 02/14/25 10:16 20 MG Clopidogrel Bisulfate 75 mg DAILY PO 02/11/25 10:00 02/14/25 10:15 75 MG Apixaban 5 mg BID PO 02/11/25 10:00 02/14/25 10:15 5 MG Trazodone HCl 50 mg HS PO 02/12/25 22:00 02/13/25 21:50 50 MG Examination Pt is lying on bed General Appearance: Alert, Oriented X3, Cooperative, Not in acute distress HEENT: Atraumatic, Mucous membranes moist/pink Respiratory: Clear to auscultation, Normal air movement, No added sounds Cardiovascular: Regular rate, Normal S1, Normal S2, No murmurs Abdominal: Active bowel sounds, Soft, no distention, no tenderness Extremities: No edema, Normal pulses, No tenderness/swelling Skin: No Significant rash, except past surgical scars Neuro: Normal speech, sensorimotor deficits none Psych/Mental Status: Mental status NL, Mood NL Nurse was there as sharperone during examination laboratory and microbiology Laboratory Tests 02/11/25 06:15 Test 02/11/25 06:15 Range/Units Serum Glucose 140 H 74-106 mg/dL Labs and/or images reviewed: Labs reviewed by me, Image(s) reviewed by me Problem List/Assessment/Plan Problem List/Assessment/Plan Acute coronary syndrome with progressive coronary artery disease s/p PCI x 1DES(New) to distal LAD NSTEMI CAD hx of s/p PCI HTN Urgency Paroxysmal atrial fibrillation, stage III, currently NSR (on Eliquis) Dyslipidemia Type 2 DM with HbA1c 6.2 Obesity class 1 Mild asymptomatic hyponatremia Plan: - status post cardiac catheterization and coronary angiogram with successful PCI to 80% mid to distal LAD stenosis x 1 ZAHRAA. - Transthoracic echocardiogram revealed LVEF 60%. Continue Plavix and Eliquis therapy, statin, and beta-preet. - Strongly advised on risk factor modifications - regular follow-ups with primary flaking roll operator with whom he has an scheduled appointment on 02/13/2025. - Accu-Cheks and ISS - strict blood pressure monitoring - tele psych oracle ebs consultant - social services assistant for home safety eval Protonix Cardiac diet Goals of care discussed with the patient for more than 29 minutes: Full code status Case discussed with Dr. Rush, patient and nurse. Pending psych consultation. Plan discussed with: Patient Dietary Evaluation Review Comments: Pt knows his diet and the need to exercise, he will follow a no sweet, high veggie cardiac diet and work on weight reduction. His goal is to be about 200 lb. Expected Outcomes/Goals: Wt loss, controlled DM, Date of Service: February 14, 2025 Billing Provider: KAT ALEGRIA MD Common Visit Codes: [id number] INP/OBS CARE(HIGH) MARI MORALES RESIDENT February 14, 2025 15:40 KAT ALEGRIA MD February 16, 2025 01:17
--- NOTE | 2025-02-14 17:02 | DVHINCON2 ---
Date of Service if different f: February 14, 2025 Consultation ([facility]) Labs Laboratory Tests Test 02/09/25 22:07 02/09/25 22:50 02/09/25 23:00 02/10/25 00:53 Hemoglobin A1c 6.2 % A1C (<5.7) B-Type Natriuretic Peptide 169.90 pg/mL (0-100) Urine Color Colorless (Yellow) Urine Clarity Clear (Clear) Urine pH 6.0 (5.0-9.0) Urine Specific [place] 1.004 (1.001-1.035) Urine Protein Negative (Negative) Urine Ketones Negative (Negative) Urine Blood Negative /uL (Negative) Urine Nitrite Negative (Negative) Urine Bilirubin Negative (Negative) Urine Urobilinogen Normal mg/dL (Negative) Urine Leukocyte Esterase Negative /uL (Negative) Urine RBC 1 /hpf (0 - 3) Urine Microscopic WBC < 1 /HPF (0-3) Urine Squamous Epithelial Cells None seen /hpf (<5) Urine Bacteria None seen /hpf (None Seen) Urine Glucose Normal mg/dL (Normal) Urine Opiates Screen Neg (NEGATIVE) Urine Fentanyl Screen Neg (NEGATIVE) Urine Barbiturates Screen Neg (NEGATIVE) Urine Phencyclidine Screen Neg (NEGATIVE) Urine Amphetamines Screen Neg (NEGATIVE) Urine Benzodiazepines Screen Neg (NEGATIVE) Urine Cocaine Screen Neg (NEGATIVE) Urine Cannabinoids Screen Neg (NEGATIVE) Thyroid Stimulating Hormone (TSH) 1.35 uIU/mL (0.55-4.78) Influenza Type A Antigen Negative (Negative) Influenza Type B Antigen Negative (Negative) SARS-CoV-2 Antigen (Rapid) Negative (NEGATIVE) Test 02/10/25 00:58 02/10/25 03:19 02/10/25 08:50 02/11/25 06:15 Lactic Acid Level 0.9 mmol/L (0.4-2.0) Troponin I High Sensitivity 135 ng/L (</=54) Prothrombin Time 10.7 sec (9.3-11.8) Prothromb Time International Ratio 1.01 (0.9-1.15) Activated Partial Thromboplast Time 40.2 SEC (24.5-34.5) Triglycerides Level 92 mg/dL (< 150) Cholesterol Level 191 mg/dL (< 200) LDL Cholesterol 142 mg/dL (< 100) HDL Cholesterol 44 mg/dL (40-59) White Blood Count 6.8 10^3/uL (4.4-10.8) Red Blood Count 4.46 10^6/uL (4.5-5.90) Hemoglobin 13.7 g/dL (13.5-17.5) Hematocrit 39.9 % (41.0-53.0) Mean Corpuscular Volume 89.5 fL (80.0-100.0) Mean Corpuscular Hemoglobin 30.7 pg (28.0-32.0) Mean Corpuscular Hemoglobin Concent 34.4 g/dL (32.0-36.0) Red Cell Distribution Width 14.1 % (11.8-14.3) Platelet Count 220 10^3/uL (140-450) Mean Platelet Volume 8.8 fL (6.9-10.8) Neutrophils (%) (Auto) 76.6 % (37.0-80.0) Lymphocytes (%) (Auto) 10.6 % (10.0-50.0) Monocytes (%) (Auto) 10.6 % (0.0-12.0) Eosinophils (%) (Auto) 1.7 % (0.0-7.0) Basophils (%) (Auto) 0.5 % (0.0-2.0) Neutrophils # (Auto) 5.2 10 ^3/uL (1.6-8.6) Lymphocytes # (Auto) 0.7 10 ^3/uL (0.4-5.4) Monocytes # (Auto) 0.7 10 ^3/uL (0-1.3) Eosinophils # (Auto) 0.1 10 ^3/uL (0-0.8) Basophils # (Auto) 0 10 ^3/uL (0-0.2) Nucleated Red Blood Cells 0.1 % Sodium Level 133 mmol/L (136-145) Potassium Level 4.4 mmol/L (3.5-5.1) Chloride Level 101 mmol/L (98-107) Carbon Dioxide Level 24 mmol/L (20-31) Anion Gap 8 (5-15) Blood Urea Nitrogen 10 mg/dL (9-23) Creatinine 1.03 mg/dL (0.700-1.30) Glomerular Filtration Rate Calc 83 mL/min (>90) BUN/Creatinine Ratio 9.7 (10.0-20.0) Serum Glucose 140 mg/dL (74-106) Calcium Level 10.2 mg/dL (8.7-10.4) Magnesium Level 2.0 mg/dL (1.6-2.6) Total Bilirubin 0.6 mg/dL (0.2-1.0) Aspartate Amino Transf (AST/SGOT) 18 U/L (13-40) Alanine Aminotransferase (ALT/SGPT) 21 U/L (7-40) Alkaline Phosphatase 64 U/L (46-116) Total Protein 7.4 g/dL (5.7-8.2) Albumin 4.7 g/dL (3.2-4.8) Appetite: Good Appearance: Stated age Psychomotor activity: WNL Behavioral: Cooperative Eye contact: Appropriate Speech: Rapid Affect: Mood Congruent Mood: Elevated Thought processes: Linear/Goal-directed Thought content: WNL Suicidal ideations: Absent Homicidal ideations: Absent Orientation: Person, Place, Time, Situation Memory intact: Recent Intellect: Average Abstractability: WNL Concentration: Adequate Attention: Adequate Judgement: WNL Insight: Limited Vitals Vital Signs Date Time Temp Pulse Resp B/P (MAP) Pulse Ox O2 Delivery O2 Flow Rate FiO2 02/14/25 13:00 97.9 74 15 127/63 (84) 97 97.9 02/14/25 08:00 Room Air* 0 21 Current medications Current Medications Medications Dose Ordered Sig/Philip Route Start Time Stop Time Status Last Admin Dose Admin Sodium Chloride 10 ml Q8HR IV 02/10/25 06:00 02/14/25 14:00 10 ML Acetaminophen/ Hydrocodone Bitart 1 tab Q4HP PRN PO 02/10/25 00:00 02/14/25 04:00 1 TAB Ondansetron HCl 4 mg Q4HP PRN IV 02/10/25 00:00 Docusate Sodium 100 mg BIDPRN PRN PO 02/10/25 00:00 02/12/25 21:17 100 MG Acetaminophen 650 mg Q6HP PRN PO 02/10/25 00:00 Nitroglycerin 0.4 mg Q5MINP PRN SL 02/10/25 00:00 Morphine Sulfate 2 mg Q30M PRN IV 02/10/25 00:00 Pantoprazole Sodium 40 mg DAILY IV 02/11/25 10:00 02/14/25 10:15 40 MG Atorvastatin Calcium 40 mg HS PO 02/10/25 22:00 02/13/25 21:51 40 MG Hydralazine HCl 10 mg Q6HP PRN IV 02/10/25 08:30 02/14/25 03:54 10 MG Carvedilol 6.25 mg Q12HR PO 02/10/25 22:00 02/14/25 10:16 6.25 MG Benazepril HCl 20 mg DAILY PO 02/10/25 10:00 02/14/25 10:16 20 MG Clopidogrel Bisulfate 75 mg DAILY PO 02/11/25 10:00 02/14/25 10:15 75 MG Apixaban 5 mg BID PO 02/11/25 10:00 02/14/25 10:15 5 MG Trazodone HCl 50 mg HS PO 02/12/25 22:00 02/13/25 21:50 50 MG Medication adjusted: Yes Labs ordered: No Diagnosis: unspecified mood disorder, alcohol abuse hx Plan : Patient presently denies suicidal/homicidal ideation. he adamantly denies any psychotic symptoms He does not meet LPS hold criteria for 5150 hold and may discharge home after medical clearance Recommend Abilify 5mg po daily for mood stabilization or possible psychosis . Recommend to follow up outpatient for medication management and therapy History of Present Illness Reason for Consult : Patient may have psychosis per daughter HPI : This is a 59-year-old reporting hx of depression and alcohol abuse, he presents here for chest pain. Patient is evaluated via telepsychiatry. He reports hx of depression and anxiety and using alcohol for the past 25 years to self-medicate. He now reports being sober about one year and attending AA meetings. He talks rapidly, difficult to interrupt. He reports always being a hyper person since childhood. He does not know why daughter is concerned. He denies hx of bipolar diagnosis or saritha. He denies hx or current auditory/visual hallucinations or paranoia. He denies suicidal/homicidal ideation. He report alcohol "messed things up for me" but reports being thankful to god that he is doing better. He is fine as long he maintains his sobriety. He denies feeling depressed, hopeless or anhedonia. He reports good appetite. He reports sleep is ok as long there is no noise. He is renting room, place can be noisy. Past Psychiatric History : He reports psych admission 8-9years ago after he was arrested and intoxicated. he denies any hx of suicide attempts. He reports prior psychotropic medications such as Prozac, he cannot recall other names. He usually stopped due to side effects such as feeling drowsy at his job or not feeling sharp. Past Medical History : Hx of Htn, diabetes. Social History : He is since 2015, has a adult children. 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 He reports family history of alcohol abuse, his father and siblings. He reports drinking for over 25 years, and sober one year. he denies current or history of other substances. He denies recent use of alcohol. Toxicology is negative substances. MAYANK FLORES DNP February 14, 2025 17:02
[2025-02-15] VITALS (7 sets, daily range): BP systolic 120–164; BP diastolic 67–86; PULSE 65–73; RESP 18–19; TEMP 96.9–98.5; O2SAT 97–100
[2025-02-15] MEDS ORDERED: ARIP2TAB PO (08:12)
--- NOTE | 2025-02-15 10:34 | DVHPNRES ---
Progress Note Date Seen: February 15, 2025 Resident Creating Document: MARI MORALES RESIDENT Has the PT tested + for MRSA If YES, has PT been informed?: No Medical Necessity Reason Pt with a Central, PICC or Fol: No Subjective Review of Systems Patient seen and examined at the bedside. No new complaints today. Psych evaluation done, prescribed Abilify and advised outpatient follow up. Patient may discharge. Patient reports: Feels better Objective vital signs Vital Sign Date Time Temp Pulse Resp B/P (MAP) Pulse Ox O2 Delivery O2 Flow Rate FiO2 02/15/25 09:32 98.5 66 19 97 02/15/25 09:08 138/78 (98) 02/15/25 08:00 Room Air* 0 21 medications Current Medications Medications Dose Ordered Sig/Philip Route Start Time Stop Time Status Last Admin Dose Admin Sodium Chloride 10 ml Q8HR IV 02/10/25 06:00 02/15/25 05:43 10 ML Acetaminophen/ Hydrocodone Bitart 1 tab Q4HP PRN PO 02/10/25 00:00 02/15/25 05:41 1 TAB Ondansetron HCl 4 mg Q4HP PRN IV 02/10/25 00:00 Docusate Sodium 100 mg BIDPRN PRN PO 02/10/25 00:00 02/12/25 21:17 100 MG Acetaminophen 650 mg Q6HP PRN PO 02/10/25 00:00 Nitroglycerin 0.4 mg Q5MINP PRN SL 02/10/25 00:00 Morphine Sulfate 2 mg Q30M PRN IV 02/10/25 00:00 Pantoprazole Sodium 40 mg DAILY IV 02/11/25 10:00 02/14/25 10:15 40 MG Atorvastatin Calcium 40 mg HS PO 02/10/25 22:00 02/14/25 22:35 40 MG Hydralazine HCl 10 mg Q6HP PRN IV 02/10/25 08:30 02/14/25 03:54 10 MG Carvedilol 6.25 mg Q12HR PO 02/10/25 22:00 02/14/25 22:36 6.25 MG Benazepril HCl 20 mg DAILY PO 02/10/25 10:00 02/14/25 10:16 20 MG Clopidogrel Bisulfate 75 mg DAILY PO 02/11/25 10:00 02/14/25 10:15 75 MG Apixaban 5 mg BID PO 02/11/25 10:00 02/14/25 22:37 5 MG Trazodone HCl 50 mg HS PO 02/12/25 22:00 02/14/25 22:37 50 MG Examination Pt is lying on bed General Appearance: Alert, Oriented X3, Cooperative, Not in acute distress HEENT: Atraumatic, Mucous membranes moist/pink Respiratory: Clear to auscultation, Normal air movement, No added sounds Cardiovascular: Regular rate, Normal S1, Normal S2, No murmurs Abdominal: Active bowel sounds, Soft, no distention, no tenderness Extremities: No edema, Normal pulses, No tenderness/swelling Skin: No Significant rash, except past surgical scars Neuro: Normal speech, sensorimotor deficits none Psych/Mental Status: Mental status NL, Mood NL Nurse was there as sharperone during examination laboratory and microbiology Laboratory Tests 02/11/25 06:15 Test 02/11/25 06:15 Range/Units Serum Glucose 140 H 74-106 mg/dL Labs and/or images reviewed: Labs reviewed by me, Image(s) reviewed by me Problem List/Assessment/Plan Problem List/Assessment/Plan Acute coronary syndrome with progressive coronary artery disease s/p PCI x 1DES(New) to distal LAD NSTEMI CAD hx of s/p PCI HTN Urgency Paroxysmal atrial fibrillation, stage III, currently NSR (on Eliquis) Dyslipidemia Type 2 DM with HbA1c 6.2 Obesity class 1 Mild asymptomatic hyponatremia unspecified mood disorder, Plan: - status post cardiac catheterization and coronary angiogram with successful PCI to 80% mid to distal LAD stenosis x 1 ZAHRAA. - Transthoracic echocardiogram revealed LVEF 60%. Continue Plavix and Eliquis therapy, statin, and beta-preet. - Strongly advised on risk factor modifications - regular follow-ups with primary interstate planner with whom he has an scheduled appointment on 02/13/2025. - Accu-Cheks and ISS - strict blood pressure monitoring - tele psych investigations consultant - social work case manager for home safety eval - tele psych investigations consultant evaluated the patient and prescribed Abilify and outpatient follow up. Protonix Cardiac diet Goals of care discussed with the patient for more than 29 minutes: Full code status Case discussed with Dr. Rush, patient and nurse. Pending psych consultation. Plan discussed with: Patient Dietary Evaluation Review Comments: Pt knows his diet and the need to exercise, he will follow a no sweet, high veggie cardiac diet and work on weight reduction. His goal is to be about 200 lb. Expected Outcomes/Goals: Wt loss, controlled DM, Date of Service: February 15, 2025 Billing Provider: KAT ALEGRIA MD Common Visit Codes: [id number] INP/OBS CARE(HIGH) DEE MORALESMARY RESIDENT February 15, 2025 10:34 KAT ALEGRIA MD February 16, 2025 01:28
== END 2025-02-15 15:49 | disposition home health service (06) | DRG 174 ==
LOC: ER 21:37 → OVERFLOW 23:48 → TELE-EAST 02-10 18:01 → UNDODISIN 02-11 19:00
PROVIDERS: ADMIT Student in an Organized Health Care Education/Training Program; ATTEND Internal Medicine
PROC: 027034Z Dilation of Coronary Artery, One Artery with Drug-eluting Intraluminal Device, Percutaneous Approach (ICD-10-PCS; principal; 2025-02-10)
PROC: 3E033PZ Introduction of Platelet Inhibitor into Peripheral Vein, Percutaneous Approach (ICD-10-PCS; 2025-02-10)
PROC: B211YZZ Fluoroscopy of Multiple Coronary Arteries using Other Contrast (ICD-10-PCS; 2025-02-10)
PROC: 4A023N7 Measurement of Cardiac Sampling and Pressure, Left Heart, Percutaneous Approach (ICD-10-PCS; 2025-02-10)
DX: I21.4 Non-ST elevation (NSTEMI) myocardial infarction (principal); I50.41 Acute combined systolic (congestive) and diastolic (congestive) heart failure; E11.22 Type 2 diabetes mellitus with diabetic chronic kidney disease; E11.42 Type 2 diabetes mellitus with diabetic polyneuropathy; E87.1 Hypo-osmolality and hyponatremia; I13.0 Hypertensive heart and chronic kidney disease with heart failure and stage 1 through stage 4 chronic kidney disease, or unspecified chronic kidney disease; I25.10 Atherosclerotic heart disease of native coronary artery without angina pectoris; I48.0 Paroxysmal atrial fibrillation; I16.0 Hypertensive urgency; E66.811 Obesity, class 1; F10.20 Alcohol dependence, uncomplicated; E78.5 Hyperlipidemia, unspecified; N18.9 Chronic kidney disease, unspecified; F39 Unspecified mood [affective] disorder; Z20.822 Contact with and (suspected) exposure to COVID-19; I49.1 Atrial premature depolarization; F32.A Depression, unspecified; F41.9 Anxiety disorder, unspecified; Y90.9 Presence of alcohol in blood, level not specified; Z79.1 Long term (current) use of non-steroidal anti-inflammatories (NSAID); Z79.899 Other long term (current) drug therapy; Z91.199 Patient's noncompliance with other medical treatment and regimen due to unspecified reason; Z68.34 Body mass index [BMI] 34.0-34.9, adult; Z81.1 Family history of alcohol abuse and dependence; Z79.01 Long term (current) use of anticoagulants; Z79.84 Long term (current) use of oral hypoglycemic drugs; Z79.82 Long term (current) use of aspirin; Z79.02 Long term (current) use of antithrombotics/antiplatelets; I25.2 Old myocardial infarction
CPT/HCPCS: 36415; 70450; 70551; 71046; 80053; 80061; 80307; 81001; 83036; 83605; 83735; 83880; 84443; 84484; 85025; 85610; 85730; 87426; 87804; 92941; 93005; 93306; 93458; 93886; 99152; G0378; J2250; J2470; Q9967